=== PATIENT | female | born 1995 | race Caucasian/White ===

== ENCOUNTER 2016-09-27 14:27 | Emergency (ER) | payer MEDICAID, OTHER ==
[~2016-09-27] VITALS: Wt 52.3 kg
[2016-09-27] MEDS ORDERED: IBUPROFEN 200 MG TAB PO ONE (15:30)
[2016-09-27 15:58] LABS: BASOPHILS % 0.4 % (0.0-2.0); EOSINOPHILS % 0.3 % (0.0-7.0); HEMOGLOBIN 14.1 g/dl (12.0-16.0); LYMPHOCYTES # 2.9 10^3/ul (0.8-2.9); LYMPHOCYTES % 33.5 % (15.0-51.0); MEAN CORPUSCULAR HEMOGLOBIN 29.3 pg (29.0-33.0); MEAN CORPUSCULAR HGB CONC 33.7 g/dl (32.0-37.0); MEAN CORPUSCULAR VOLUME 86.9 fl (82.0-101.0); MEAN PLATELET VOLUME 9.1 fl (7.4-10.4); MONOCYTE # 0.5 10^3/ul (0.3-0.9); NEUTROPHIL # 5.1 10^3/ul (1.6-7.5); NEUTROPHILS % 59.8 % (39.0-77.0); PLATELET COUNT 282 10^3/UL (140-440); RED BLOOD COUNT 4.83 10^6/ul (4.20-5.40); RED CELL DISTRIBUTION WIDTH 13.2 % (11.5-14.5); UNCORRECTED WBC 8.6 10^3/ul (4.8-10.8); WHITE BLOOD COUNT 8.6 10^3/ul (4.8-10.8)
--- NOTE | 2016-09-27 16:00 | RADRPT ---
PROCEDURE: XR Knee. CLINICAL INDICATION: Left knee pain TECHNIQUE: Three views of the left knee are available for review. COMPARISON: None available FINDINGS: There is no acute fracture or dislocation. The joint spaces are maintained. No significant joint e ffusion is present. The soft tissues are unremarkable. RPTAT: CRZU IMPRESSION: 1. Unremarkable left knee x-ray series. .Kendra Hamm MD, MD Date Time Electronically viewed and signed by .Kendra Hamm MD, on 09/27/2016 16:00 .T/
[2016-09-27 16:08] LABS: ALBUMIN 4.6 g/dl (3.3-4.9); CHLORIDE 104 mmol/L (97-110); SODIUM 142 mmol/L (135-144)
[2016-09-27 16:09] LABS: POTASSIUM 4.2 mmol/L (3.5-5.1)
[2016-09-27 16:10] LABS: CREATININE 0.64 mg/dl (0.44-1.00)
[2016-09-27 16:11] LABS: ALBUMIN/GLOBULIN RATIO 1.12; ALKALINE PHOSPHATASE 52 IU/L (42-121); ANION GAP 15 (8-16); ASPARTATE AMINO TRANSFERASE 18 IU/L (15-46); BILIRUBIN,INDIRECT 0.8 mg/dl (0-1.1); BILIRUBIN,TOTAL 0.8 mg/dl (0.2-1.3); BLOOD UREA NITROGEN 11 mg/dl (7-20); CARBON DIOXIDE 27 mmol/L (21-31); TOTAL PROTEIN 8.7 g/dl (6.1-8.1)
[2016-09-27 16:12] LABS: ALANINE AMINOTRANSFERASE 21 IU/L (13-69); CALCIUM 9.7 mg/dl (8.4-10.2); CONDITION 1; GLUCOSE 97 mg/dl (70-220)
[2016-09-27 16:16] LABS: C-REACTIVE PROTEIN < 0.5 mg/dl (0.0-0.9)
[2016-09-27 17:09] LABS: ADD UMIC YES; URINE BILIRUBIN (Dip) NEGATIVE (NEGATIVE); URINE BLOOD (Dip) TRACE (NEGATIVE); URINE COLOR YELLOW (YELLOW); URINE GLUCOSE (Dip) NEGATIVE (NEGATIVE); URINE KETONES (Dip) TRACE (NEGATIVE); URINE LEUKOCYTE ESTERASE (Dip) 1+ (NEGATIVE); URINE NITRITE (Dip) NEGATIVE (NEGATIVE); URINE TOTAL PROTEIN (Dip) NEGATIVE (NEGATIVE); URINE UROBILINOGEN (Dip) 0.2 E.U./dL (0.1-1.0)
[2016-09-27] MEDS ORDERED: HYDR-906 PO (17:20)
[2016-09-27] MEDS ORDERED: IBUP-1542 PO (17:20)
[2016-09-27 17:28] LABS: BACTERIA,URINE MODERATE; MUCUS,URINE MANY; SQUAMOUS EPITHELIAL CELL,UR MODERATE; URINE RBCS 0-2 /HPF (0)
--- NOTE | 2016-09-27 17:29 | ERD ---
ER Documentation Chief Complaint Date/Time DATE: 09/27/16 TIME: 17:23 Chief Complaint l. knee swelling since yest, denies trauma HPI This is a 21-year-old female presents to the ER with left knee pain and swelling that started this morning. Patient states that she has not fallen or hurt her knee. Left knee pain and swelling just started out of nowhere. Knee pain is described as a squeezing sensation. Pain has been constant and it radiates down her leg. Patient has not tried anything for the pain. She denies fevers or chills. Her last normal menstrual period was September 03, 2006. ROS 12 point review of systems was done, all negative except per HPI. Medications Home Meds Active Scripts Hydrocodone/Acetaminophen ([place] 5-325 Tablet) 1 Each Tablet, 1 TAB PO Q6H Y for PAIN, #10 TAB Prov:HUSSEIN PALMER 09/27/16 Ibuprofen* (Motrin*) 600 Mg Tab, 600 MG PO Q6, #30 TAB Prov:HUSSEIN PALMER 09/27/16 Allergies Allergies: Coded Allergies: No Known Allergy (Unverified , 09/27/16) PMhx/Soc Medical and Surgical Hx: pt denies Medical Hx, pt denies Surgical Hx Hx Alcohol Use: No Hx Substance Use: No Hx Tobacco Use: No Physical Exam Vitals Vital Signs Date Time Temp Pulse Resp B/P Pulse Ox O2 Delivery O2 Flow Rate FiO2 09/27/16 14:35 99.0 97 20 123/76 100 Physical Exam GENERAL: The patient is well developed and appropriate for usual state of health , in no apparent distress. HEENT: Atraumatic. CHEST: Clear to auscultation bilaterally. There are no rales, wheezes or rhonchi. HEART: Regular rate and rhythm. No murmurs, clicks, rubs or gallops. EXTREMITIES:left knee: patient has an area of ecchymosis on the lateral left knee. patient has full ROM of her knee. area is slightly warm to the touch. no femur pain, no ankle pain. n/v intact NEURO: Alert and oriented. SKIN: The skin is warm and dry. Result Diagram: 09/27/16 1533 09/27/16 1533 Results 24 hrs Laboratory Tests Test 09/27/16 15:33 Alanine Aminotransferase (ALT/SGPT) 21IU/L Albumin 4.6g/dl Albumin/Globulin Ratio 1.12 Alkaline Phosphatase 52IU/L Anion Gap 15 Aspartate Amino Transf (AST/SGOT) 18IU/L Basophils # 0.010^3/ul Basophils % 0.4% Blood Urea Nitrogen 11mg/dl C-Reactive Protein < 0.5mg/dl Calcium Level 9.7mg/dl Carbon Dioxide Level 27mmol/L Chloride Level 104mmol/L Creatinine 0.64mg/dl Direct Bilirubin 0.00mg/dl Eosinophils # 0.010^3/ul Eosinophils % 0.3% Globulin 4.10g/dl Glucose Level 97mg/dl Hematocrit 42.0% Hemoglobin 14.1g/dl Indirect Bilirubin 0.8mg/dl Lymphocytes # 2.910^3/ul Lymphocytes % 33.5% Mean Corpuscular Hemoglobin 29.3pg Mean Corpuscular Hemoglobin Concent 33.7g/dl Mean Corpuscular Volume 86.9fl Mean Platelet Volume 9.1fl Monocytes # 0.510^3/ul Monocytes % 6.0% Neutrophils # 5.110^3/ul Neutrophils % 59.8% Nucleated Red Blood Cells # 0.010^3/ul Nucleated Red Blood Cells % 0.0/100WBC Platelet Count 97871^3/UL Potassium Level 4.2mmol/L Red Blood Count 4.8310^6/ul Red Cell Distribution Width 13.2% Sodium Level 142mmol/L Total Bilirubin 0.8mg/dl Total Protein 8.7g/dl White Blood Count 8.610^3/ul Current Medications Medications (Trade) Dose Ordered Sig/Pat Route PRN Reason Start Time Stop Time Status Last Admin Dose Admin Ibuprofen (Motrin) 400 mg ONCE ONCE PO 09/27/16 15:30 09/27/16 15:31 DC 09/27/16 15:25 Procedures/MDM This is a 29-year-old female presents to the ER with knee pain and swelling. Differential diagnosis includes but is not limited to fracture, dislocation, ligament tear, meniscus tear, septic joint, septic arthritis, rheumatological disorder, infection. At this time etiology of knee ecchymosis pain and swelling is unknown. examined patient as well. Patient has full range of motion of her knee I doubt septic arthritis or septic joint. Patient does not have an elevation in her white blood cell count and elevation in CRP and ESR markers are normal. Patient will be sent home with ibuprofen. Patient needs to follow-up with her primary care doctor within 1-2 days or return to ER sooner if symptoms worsen. Plan was discussed with the patient she understands and agrees with plan. Departure Diagnosis: Primary Impression: Knee pain Condition: Stable Patient Instructions: Knee Pain, Uncertain Cause Additional Instructions: Call your primary care doctor TOMORROW for an appointment during the next 1-2 days.See the doctor sooner or return here if your condition worsens before your appointment time. HUSSEIN PALMER Sep 27, 2016 17:29
== END 2016-09-27 17:32 | disposition home or self-care (01) ==
LOC: FTE 14:27
DX: M25.562 Pain in left knee (principal)
CPT/HCPCS: 73562; 80053; 81001; 85025; 85651; 86140; Z7502; Z7610; 81003